=== PATIENT | male | born 1935 | race Caucasian/White ===

== ENCOUNTER → 2016-10-16 | Outpatient (CLI) | payer OTHER, MEDICARE ==
[~2016-10-16] MED LIST: ASPEC81 PO; ATEN-173 PO; LRT5 PO; LSN/20125 PO; MEVACOR20 M1 OR
[2016-10-16 15:00] LABS: ALT/SGPT 30 U/L (12-78); AST/SGOT 20 U/L (15-37); BLOOD UREA NITROGEN 30 mg/dl (7-18); BUN/CREATININE RATIO 22.8 (10-20); CALCIUM 9.4 mg/dl (8.5-10.1); CARBON DIOXIDE 31 mmol/L (21-32); CHLORIDE 105 mmol/L (98-107); CHOLESTEROL 169 mg/dl (0-200); GLUCOSE 107 mg/dl (70-99); POTASSIUM 3.9 mmol/L (3.5-5.1); SODIUM 141 mmol/L (136-145)
[2016-10-16 15:03] LABS: HDL CHOLESTEROL 86 mg/dl; LDL CHOLESTEROL CALCULATED 69 mg/dl; TRIGLYCERIDES 70 mg/dl (0-150); VERY LOW DENSITY LIPOPROT CALC 14 mg/dl
[2016-10-16 15:19] LABS: RATIO 5.5 mcg/mg (0-30.0)
== END | disposition home or self-care (01) ==
LOC: C.LABBC 09:42
PROVIDERS: ATTEND Internal Medicine
DX: R73.03 Prediabetes (principal); E78.5 Hyperlipidemia, unspecified; E53.8 Deficiency of other specified B group vitamins

== ENCOUNTER → 2017-10-26 | Outpatient (CLI) | payer OTHER, MEDICARE ==
[2017-10-26 13:51] LABS: HEMOGLOBIN A1C 6.3 % (4.5-5.6)
[2017-10-26 14:21] LABS: ALT/SGPT 29 U/L (12-78); AST/SGOT 20 U/L (15-37); BLOOD UREA NITROGEN 22 mg/dl (7-18); CALCIUM 9.3 mg/dl (8.5-10.1); CARBON DIOXIDE 28 mmol/L (21-32); CREATININE 1.13 mg/dl (0.60-1.40); GLUCOSE 135 mg/dl (70-99); POTASSIUM 3.4 mmol/L (3.5-5.1); SODIUM 138 mmol/L (136-145)
[2017-10-26 14:24] LABS: CHOLESTEROL 168 mg/dl (0-200); LDL CHOLESTEROL CALCULATED 63 mg/dl
== END | disposition home or self-care (01) ==
LOC: C.LABBC 09:45
PROVIDERS: ATTEND Internal Medicine
DX: E78.5 Hyperlipidemia, unspecified (principal); E11.9 Type 2 diabetes mellitus without complications; I10 Essential (primary) hypertension